=== PATIENT | male | born 1990 | race African-American/Black ===

== ENCOUNTER 2024-05-16 02:02 | Emergency (ER) | payer OTHER ==
[~2024-05-16] VITALS: Ht 167.6 cm; Wt 71.0 kg
[2024-05-16 02:07] VITALS: O2SAT 99
[2024-05-16] MEDS ORDERED: LIDO1ADH7 TP (03:19)
[2024-05-16] MEDS ORDERED: CYCL10TA21 MT (03:19)
[2024-05-16] MEDS: HYDROCODONE/ACETAMINOPHEN 7.5/325MG TABLET PO ONE (03:53)
[2024-05-16 04:53] VITALS: BP 129/71; PULSE 90; RESP 18; TEMP 37.1; O2SAT 100
== END 2024-05-16 04:53 | disposition home or self-care (01) ==
LOC: ER 02:02
DX: F12.90 Cannabis use, unspecified, uncomplicated (principal); M54.50 Low back pain, unspecified; V89.2XXA Person injured in unspecified motor-vehicle accident, traffic, initial encounter; Y93.89 Activity, other specified; Y92.89 Other specified places as the place of occurrence of the external cause; Y99.8 Other external cause status
CPT/HCPCS: 99283; Z7610